=== PATIENT | male | born 1935 | race Caucasian/White ===

== ENCOUNTER 2022-08-31 17:15 | Inpatient (IN) | payer MEDICARE, BC ==
[~2022-08-31] VITALS: Ht 172.7 cm; Wt 69.9 kg
[2022-08-31] MEDS ORDERED: FLOMAX (17:38)
[2022-08-31] MEDS ORDERED: LOSARTAN (17:38)
[2022-08-31] MEDS ORDERED: GABAPENTIN (17:38)
[2022-08-31] MEDS ORDERED: LEVOTHYROXINE (17:38)
[2022-08-31 17:44] LABS: HEMATOCRIT 39.7 % (36.7-47.1); MEAN CORPUSCULAR HEMOGLOBIN 30.7 uug (23.8-33.4); MEAN CORPUSCULAR VOLUME 91.6 fL (73.0-96.2); PLATELET COUNT (AUTO) 257 K/uL (152-348)
[2022-08-31 17:51] LABS: CARBON DIOXIDE 23 mmol/L (21-32); CHLORIDE 106 mmol/L (98-107); CREATININE 1.5 mg/dL (0.6-1.3); GLUCOSE 95 mg/dL (74-106); POTASSIUM 3.7 mmol/L (3.5-5.1); UREA NITROGEN, BLOOD 24 mg/dL (7-18)
[2022-08-31 17:57] LABS: ACETAMINOPHEN 4.4 ug/mL (10-30); ALANINE AMINOTRANSFERASE 69 U/L (16-63); ALKALINE PHOSPHATASE 74 U/L (50-136); ASPARTATE AMINOTRANSFERASE 30 U/L (15-37); BILIRUBIN,DIRECT 0.2 mg/dL (0.0-0.2); BILIRUBIN,TOTAL 1.3 mg/dL (0.2-1.0); TOTAL PROTEIN, SERUM 6.9 g/dL (6.4-8.2)
[2022-08-31 18:21] LABS: ETHANOL < 3 MG/DL (0-0)
[2022-08-31 23:00] VITALS: BP 132/69
[2022-08-31] MEDS ORDERED: MAG HYDROX/AL HYDROX/SIMETH 30 ML LIQUID UDC PO PRN (23:15)
[2022-08-31] MEDS ORDERED: ACETAMINOPHEN 650 MG SUPP.RECT RC PRN (23:15)
[2022-08-31] MEDS ORDERED: MAGNESIUM HYDROXIDE 30 ML LIQUID UDC PO PRN (23:15)
[2022-08-31] MEDS ORDERED: ZOLPIDEM 5 MG TABLET PO PRN (23:15)
[2022-08-31 23:59] LABS: *BILIRUBIN,URIN NEGATIVE (NEGATIVE); *BLOOD, URINE NEGATIVE (NEGATIVE); *CLARITY,URINE CLEAR (CLEAR); *COLOR,URINE YELLOW (YELLOW); *KETONES,URINE NEGATIVE (NEGATIVE); *UROBILINOGEN,URINE 0.2 E.U./dl (NORMAL); LEUKOCYTE ESTERASE ,URINE NEGATIVE (NEGATIVE); NITRITE, URINE NEGATIVE (NEGATIVE); PH,URINE 5.5 (5.0-8.0); UGLUCOSE NEGATIVE (NEGATIVE)
[2022-09-01 00:03] LABS: *AMPHETAMINE, URINE NEGATIVE (NEGATIVE); *CANNABINOID, URINE NEGATIVE (NEGATIVE); *COCCAINE, URINE NEGATIVE (NEGATIVE); *PHENCYCLIDINE SCREEN,URINE NEGATIVE (NEGATIVE)
[2022-09-01] MEDS: LORAZEPAM 0.5 MG TABLET PO PRN ×2 (04:49→14:30)
[2022-09-01] MEDS: ACETAMINOPHEN 325 MG TABLET PO PRN ×2 (04:51→14:30)
[2022-09-01 07:44] VITALS: BP 138/66
[2022-09-01 07:52] LABS: ALANINE AMINOTRANSFERASE 68 U/L (16-63); ALKALINE PHOSPHATASE 78 U/L (50-136); ASPARTATE AMINOTRANSFERASE 35 U/L (15-37); BILIRUBIN,TOTAL 1.3 mg/dL (0.2-1.0); CARBON DIOXIDE 24 mmol/L (21-32); CHLORIDE 105 mmol/L (98-107); CREATININE 1.4 mg/dL (0.6-1.3); GLUCOSE 106 mg/dL (74-106); POTASSIUM 3.8 mmol/L (3.5-5.1); TOTAL PROTEIN, SERUM 7.1 g/dL (6.4-8.2); UREA NITROGEN, BLOOD 22 mg/dL (7-18)
[2022-09-01] MEDS ORDERED: TAMS-3 PO (13:45)
[2022-09-01] MEDS ORDERED: GABA300S PO (13:47)
[2022-09-01] MEDS ORDERED: LOSA25TA27 PO (14:14)
[2022-09-01] MEDS ORDERED: ASPI81TA31 PO (14:14)
[2022-09-01] MEDS ORDERED: GABA300C PO (14:14)
[2022-09-01] MEDS ORDERED: LEVO25TA9 PO (14:14)
[2022-09-01] MEDS ORDERED: FAMO40TA7 PO (14:16)
[2022-09-01] MEDS ORDERED: FINA5TAB3 PO (14:16)
[2022-09-01] MEDS ORDERED: MIRT7.5T10 PO (14:22)
[2022-09-01] MEDS ORDERED: ROSU20TA2 PO (14:26)
[2022-09-01] MEDS ORDERED: MEMA10TA PO (14:26)
[2022-09-01] MEDS ORDERED: QUET200T PO (14:26)
[2022-09-01] MEDS ORDERED: SENN8.6T19 PO (14:26)
[2022-09-01] MEDS ORDERED: LOSARTAN POTASSIUM 25 MG TABLET PO SCH (14:30)
[2022-09-01 15:20] VITALS: BP 135/78
[2022-09-01] MEDS ORDERED: GABAPENTIN 100 MG CAPSULE PO SCH (17:00)
[2022-09-01] MEDS: MEMANTINE HCL 5 MG TABLET PO SCH (18:19)
[2022-09-01] MEDS: HYDROCODONE/APAP 5-325MG TABLET PO PRN (18:19)
[2022-09-01 19:50] VITALS: BP 126/60
[2022-09-01] MEDS: SENNOSIDES 1 TABLET PO SCH (20:45)
[2022-09-01] MEDS: TAMSULOSIN HCL 0.4 MG CAP.SR.24H PO SCH (20:45)
[2022-09-01] MEDS: ATORVASTATIN 40 MG TABLET PO SCH (20:45)
[2022-09-01] MEDS: GABAPENTIN 300 MG CAPSULE PO SCH (20:45)
[2022-09-01] MEDS: QUETIAPINE FUMARATE 25 MG TABLET PO SCH (20:45)
[2022-09-02] MEDS: HYDROCODONE/APAP 5-325MG TABLET PO PRN ×2 (03:33→13:14)
[2022-09-02] MEDS: LEVOTHYROXINE SODIUM 25 MCG TABLET PO SCH (06:32)
[2022-09-02 08:10] VITALS: BP 115/76
[2022-09-02] MEDS: FINASTERIDE 5 MG TABLET PO SCH (08:50)
[2022-09-02] MEDS: ASPIRIN 81 MG TAB.CHEW PO SCH (08:50)
[2022-09-02] MEDS: MEMANTINE HCL 5 MG TABLET PO SCH ×2 (08:50→16:54)
[2022-09-02] MEDS: GABAPENTIN 300 MG CAPSULE PO SCH ×2 (08:50→20:01)
[2022-09-02] MEDS ORDERED: MEMANTINE HCL 10 MG TABLET PO SCH (09:00)
[2022-09-02] MEDS: ACETAMINOPHEN 325 MG TABLET PO PRN (10:25)
[2022-09-02 16:03] VITALS: BP 108/66
[2022-09-02 19:17] LABS: THYROID STIMULATING HORMONE 4.475 mIU/mL (0.358-3.740)
[2022-09-02 19:48] VITALS: BP 111/71
[2022-09-02] MEDS: QUETIAPINE FUMARATE 25 MG TABLET PO SCH (20:01)
[2022-09-02] MEDS: TAMSULOSIN HCL 0.4 MG CAP.SR.24H PO SCH (20:01)
[2022-09-02] MEDS: SENNOSIDES 1 TABLET PO SCH (20:02)
[2022-09-02] MEDS: ATORVASTATIN 40 MG TABLET PO SCH (20:02)
[2022-09-03] MEDS: LEVOTHYROXINE SODIUM 25 MCG TABLET PO SCH (06:23)
[2022-09-03] MEDS: ACETAMINOPHEN 325 MG TABLET PO PRN (06:28)
[2022-09-03 07:51] VITALS: BP 105/57
[2022-09-03] MEDS: ASPIRIN 81 MG TAB.CHEW PO SCH (08:29)
[2022-09-03] MEDS: GABAPENTIN 300 MG CAPSULE PO SCH ×2 (08:29→20:17)
[2022-09-03] MEDS: FINASTERIDE 5 MG TABLET PO SCH (08:29)
[2022-09-03] MEDS: MEMANTINE HCL 5 MG TABLET PO SCH ×2 (08:29→16:29)
[2022-09-03] MEDS: HYDROCODONE/APAP 5-325MG TABLET PO PRN (14:22)
[2022-09-03 15:13] VITALS: BP 128/71
[2022-09-03 20:07] VITALS: BP 116/66
[2022-09-03] MEDS: ATORVASTATIN 40 MG TABLET PO SCH (20:17)
[2022-09-03] MEDS: SENNOSIDES 1 TABLET PO SCH (20:17)
[2022-09-03] MEDS: QUETIAPINE FUMARATE 25 MG TABLET PO SCH (20:17)
[2022-09-03] MEDS: TAMSULOSIN HCL 0.4 MG CAP.SR.24H PO SCH (20:17)
[2022-09-04] MEDS: LEVOTHYROXINE SODIUM 25 MCG TABLET PO SCH (06:06)
[2022-09-04 07:30] VITALS: BP 125/73
[2022-09-04] MEDS: GABAPENTIN 300 MG CAPSULE PO SCH ×2 (08:56→20:50)
[2022-09-04] MEDS: FINASTERIDE 5 MG TABLET PO SCH (08:56)
[2022-09-04] MEDS: MEMANTINE HCL 5 MG TABLET PO SCH ×2 (08:56→17:05)
[2022-09-04] MEDS: ASPIRIN 81 MG TAB.CHEW PO SCH (08:57)
[2022-09-04 15:58] VITALS: BP 107/73
[2022-09-04] MEDS: ACETAMINOPHEN 325 MG TABLET PO PRN (17:33)
[2022-09-04 20:19] VITALS: BP 116/61
[2022-09-04] MEDS: SENNOSIDES 1 TABLET PO SCH (20:50)
[2022-09-04] MEDS: ATORVASTATIN 40 MG TABLET PO SCH (20:50)
[2022-09-04] MEDS: QUETIAPINE FUMARATE 25 MG TABLET PO SCH (20:50)
[2022-09-04] MEDS: TAMSULOSIN HCL 0.4 MG CAP.SR.24H PO SCH (20:50)
[2022-09-05] MEDS: ACETAMINOPHEN 325 MG TABLET PO PRN ×2 (06:10→14:17)
[2022-09-05] MEDS: LEVOTHYROXINE SODIUM 25 MCG TABLET PO SCH (06:10)
[2022-09-05 06:51] LABS: HEMATOCRIT 38.9 % (36.7-47.1); MEAN CORPUSCULAR HEMOGLOBIN 31.5 uug (23.8-33.4); MEAN CORPUSCULAR VOLUME 91.1 fL (73.0-96.2); PLATELET COUNT (AUTO) 257 K/uL (152-348)
[2022-09-05 07:36] LABS: BILIRUBIN,TOTAL 1.2 mg/dL (0.2-1.0); CREATININE 1.2 mg/dL (0.6-1.3); MAGNESIUM 2.2 mg/dL (1.8-2.4); PHOSPHOROUS 3.3 mg/dL (2.5-4.9); POTASSIUM 4.3 mmol/L (3.5-5.1); TOTAL PROTEIN, SERUM 7.1 g/dL (6.4-8.2)
[2022-09-05 07:39] VITALS: BP 113/67
[2022-09-05] MEDS: GABAPENTIN 300 MG CAPSULE PO SCH ×2 (09:08→20:33)
[2022-09-05] MEDS: ASPIRIN 81 MG TAB.CHEW PO SCH (09:08)
[2022-09-05] MEDS: FINASTERIDE 5 MG TABLET PO SCH (09:08)
[2022-09-05] MEDS: MEMANTINE HCL 5 MG TABLET PO SCH ×2 (09:08→17:07)
[2022-09-05 16:07] VITALS: BP 126/63
[2022-09-05 20:01] VITALS: BP 145/80
[2022-09-05] MEDS: SENNOSIDES 1 TABLET PO SCH (20:32)
[2022-09-05] MEDS: TAMSULOSIN HCL 0.4 MG CAP.SR.24H PO SCH (20:33)
[2022-09-05] MEDS: QUETIAPINE FUMARATE 25 MG TABLET PO SCH (20:33)
[2022-09-05] MEDS: ATORVASTATIN 40 MG TABLET PO SCH (20:33)
[2022-09-06] MEDS: LEVOTHYROXINE SODIUM 25 MCG TABLET PO SCH (06:26)
[2022-09-06 07:40] VITALS: BP 120/68
[2022-09-06] MEDS: ASPIRIN 81 MG TAB.CHEW PO SCH (09:13)
[2022-09-06] MEDS: FINASTERIDE 5 MG TABLET PO SCH (09:13)
[2022-09-06] MEDS: MEMANTINE HCL 5 MG TABLET PO SCH ×2 (09:13→17:02)
[2022-09-06] MEDS: GABAPENTIN 300 MG CAPSULE PO SCH ×2 (09:13→20:18)
[2022-09-06] MEDS: ACETAMINOPHEN 325 MG TABLET PO PRN ×2 (15:23→20:50)
[2022-09-06 16:38] VITALS: BP 126/64
[2022-09-06 20:00] VITALS: BP 116/67
[2022-09-06] MEDS: QUETIAPINE FUMARATE 25 MG TABLET PO SCH (20:17)
[2022-09-06] MEDS: TAMSULOSIN HCL 0.4 MG CAP.SR.24H PO SCH (20:17)
[2022-09-06] MEDS: SENNOSIDES 1 TABLET PO SCH (20:17)
[2022-09-06] MEDS: ATORVASTATIN 40 MG TABLET PO SCH (20:17)
[2022-09-07] MEDS: LEVOTHYROXINE SODIUM 25 MCG TABLET PO SCH (06:57)
[2022-09-07 08:16] VITALS: BP 115/70
[2022-09-07] MEDS: ASPIRIN 81 MG TAB.CHEW PO SCH (08:44)
[2022-09-07] MEDS: MEMANTINE HCL 5 MG TABLET PO SCH ×2 (08:44→16:24)
[2022-09-07] MEDS: FINASTERIDE 5 MG TABLET PO SCH (08:44)
[2022-09-07] MEDS: GABAPENTIN 300 MG CAPSULE PO SCH ×2 (08:44→20:25)
[2022-09-07 16:50] VITALS: BP 110/73
[2022-09-07 19:47] VITALS: BP 109/57
[2022-09-07] MEDS: ATORVASTATIN 40 MG TABLET PO SCH (20:25)
[2022-09-07] MEDS: QUETIAPINE FUMARATE 25 MG TABLET PO SCH (20:25)
[2022-09-07] MEDS: TAMSULOSIN HCL 0.4 MG CAP.SR.24H PO SCH (20:25)
[2022-09-07] MEDS: SENNOSIDES 1 TABLET PO SCH (20:25)
[2022-09-07] MEDS: ACETAMINOPHEN 325 MG TABLET PO PRN (20:25)
[2022-09-08] MEDS: LEVOTHYROXINE SODIUM 25 MCG TABLET PO SCH (06:15)
[2022-09-08 07:53] VITALS: BP 114/72
[2022-09-08] MEDS: FINASTERIDE 5 MG TABLET PO SCH (08:36)
[2022-09-08] MEDS: GABAPENTIN 300 MG CAPSULE PO SCH ×2 (08:36→21:08)
[2022-09-08] MEDS: ASPIRIN 81 MG TAB.CHEW PO SCH (08:36)
[2022-09-08] MEDS: MEMANTINE HCL 5 MG TABLET PO SCH ×2 (08:36→16:22)
[2022-09-08] MEDS: ACETAMINOPHEN 325 MG TABLET PO PRN ×2 (11:01→17:20)
[2022-09-08 16:10] VITALS: BP 99/49
[2022-09-08 19:58] VITALS: BP 123/74
[2022-09-08] MEDS: TAMSULOSIN HCL 0.4 MG CAP.SR.24H PO SCH (21:07)
[2022-09-08] MEDS: SENNOSIDES 1 TABLET PO SCH (21:07)
[2022-09-08] MEDS: QUETIAPINE FUMARATE 25 MG TABLET PO SCH (21:08)
[2022-09-08] MEDS: ATORVASTATIN 10 MG TABLET PO SCH (21:08)
[2022-09-09] MEDS: LEVOTHYROXINE SODIUM 25 MCG TABLET PO SCH (06:49)
[2022-09-09 07:30] VITALS: BP 138/74
[2022-09-09] MEDS: FINASTERIDE 5 MG TABLET PO SCH (08:26)
[2022-09-09] MEDS: GABAPENTIN 300 MG CAPSULE PO SCH ×2 (08:26→20:29)
[2022-09-09] MEDS: ASPIRIN 81 MG TAB.CHEW PO SCH (08:26)
[2022-09-09] MEDS: MEMANTINE HCL 5 MG TABLET PO SCH ×2 (08:26→16:59)
[2022-09-09] MEDS: ACETAMINOPHEN 325 MG TABLET PO PRN ×2 (08:56→16:22)
[2022-09-09 15:28] VITALS: BP 100/59
[2022-09-09 20:00] VITALS: BP 118/67
[2022-09-09] MEDS: TAMSULOSIN HCL 0.4 MG CAP.SR.24H PO SCH (20:29)
[2022-09-09] MEDS: SENNOSIDES 1 TABLET PO SCH (20:29)
[2022-09-09] MEDS: QUETIAPINE FUMARATE 25 MG TABLET PO SCH (20:29)
[2022-09-09] MEDS: ATORVASTATIN 10 MG TABLET PO SCH (20:30)
[2022-09-10] MEDS: LEVOTHYROXINE SODIUM 25 MCG TABLET PO SCH (06:21)
[2022-09-10 07:55] VITALS: BP 129/70
[2022-09-10] MEDS: FINASTERIDE 5 MG TABLET PO SCH (08:14)
[2022-09-10] MEDS: GABAPENTIN 300 MG CAPSULE PO SCH (08:14)
[2022-09-10] MEDS: MEMANTINE HCL 5 MG TABLET PO SCH (08:14)
[2022-09-10] MEDS: ASPIRIN 81 MG TAB.CHEW PO SCH (08:14)
[2022-09-10] MEDS: ACETAMINOPHEN 325 MG TABLET PO PRN (09:21)
== END 2022-09-10 12:45 | disposition home or self-care (01) | DRG 885 ==
LOC: ER 17:44 → GPS 20:30
PROVIDERS: ADMIT Psychiatry & Neurology Psychiatry
DX: F29 Unspecified psychosis not due to a substance or known physiological condition (principal); N17.0 Acute kidney failure with tubular necrosis; R17 Unspecified jaundice; F03.918 Unspecified dementia, unspecified severity, with other behavioral disturbance; H91.90 Unspecified hearing loss, unspecified ear; E03.9 Hypothyroidism, unspecified; N40.0 Benign prostatic hyperplasia without lower urinary tract symptoms; G89.29 Other chronic pain; M16.11 Unilateral primary osteoarthritis, right hip; G62.9 Polyneuropathy, unspecified; E78.5 Hyperlipidemia, unspecified; Z79.890 Hormone replacement therapy; I10 Essential (primary) hypertension; F31.9 Bipolar disorder, unspecified
CPT/HCPCS: 36415; 70450; 71045; 73502; 83735; 84100; 84443; 85025; A4663; G0480

== ENCOUNTER 2023-01-13 14:39 | Inpatient (IN) | payer MEDICARE, BC ==
[~2023-01-13] VITALS: Ht 172.7 cm; Wt 68.1 kg
[~2023-01-13 14:39] MED LIST: ASPI81TA31 PO; FAMO40TA7 PO; FINA5TAB3 PO; GABA300C PO; LEVO25TA9 PO; LOSA25TA27 PO; MEMA10TA PO; MIRT7.5T10 PO; QUET200T PO; ROSU20TA2 PO; SENN8.6T19 PO; TAMS-3 PO
[2023-01-13] MEDS ORDERED: ACETAMINOPHEN ES 500 MG TABLET PO ONE (15:00)
[2023-01-13 15:27] LABS: ABG BASE EXCESS -4.2 mmol/L; ABG HCO3 18.8 mmol/L; ABG PCO2 28.9 mmHg (35.0-45.0); ABG PH 7.432 (7.350-7.450); ABG PO2 85.4 mmHg (75.0-100.0); ABG SITE RIGHT BRACHIAL; COHb 0.6 % (0.5-1.5); MetHb 0.2 % (0.0-1.5); O2Hb 95.7 % (94.0-97.0); VENT MODE Room Air
[2023-01-13 15:33] LABS: BASOPHILS % (AUTO) 0.9 % (0.0-2.0); EOSINOPHILS # (AUTO) 0.3 K/uL (0.0-0.7); EOSINOPHILS % (AUTO) 6.9 % (0.0-7.0); HEMATOCRIT 37.9 % (36.7-47.1); HEMOGLOBIN 12.6 g/dL (12.5-16.3); LYMPHOCYTES % (AUTO) 27.1 % (20.5-51.5); MEAN CORPUSCULAR HEMOGLOBIN 30.2 uug (23.8-33.4); MEAN CORPUSCULAR HGB CONC 33 g/dL (32.5-36.3); MEAN CORPUSCULAR VOLUME 90.8 fL (73.0-96.2); MONOCYTES # (AUTO) 0.6 K/uL (0.1-1.30); MONOCYTES % (AUTO) 16.7 % (0.0-11.0); NEUTROPHILS # (AUTO) 1.8 K/uL (1.8-8.9); NEUTROPHILS % (AUTO) 48.4 % (38.5-71.5); PLATELET COUNT (AUTO) 168 K/uL (152-348); RED BLOOD CELL COUNT(AUTO) 4.17 MIL/uL (4.06-5.63); RED CELL DISTRIBUTION WIDTH 13.2 % (12.1-16.2); WHITE BLOOD COUNT (AUTO) 3.8 K/uL (3.6-10.2)
[2023-01-13 15:35] LABS: DIFFERENTIAL COMMENT 1
[2023-01-13 16:02] LABS: CALCIUM 8.5 mg/dL (8.5-10.1); CARBON DIOXIDE 25 mmol/L (21-32); CHLORIDE 106 mmol/L (98-107); GLUCOSE 124 mg/dL (74-106); POTASSIUM 4.2 mmol/L (3.5-5.1); SODIUM SERUM 139 mmol/L (136-145)
[2023-01-13 16:03] LABS: CREATININE 1.5 mg/dL (0.6-1.3); UREA NITROGEN, BLOOD 24 mg/dL (7-18)
[2023-01-13 16:17] LABS: ALANINE AMINOTRANSFERASE 66 U/L (16-63); ALBUMIN 3.2 g/dL (3.4-5.0); ALKALINE PHOSPHATASE 111 U/L (50-136); ASPARTATE AMINOTRANSFERASE 53 U/L (15-37); BILIRUBIN,TOTAL 0.8 mg/dL (0.2-1.0); FERRITIN 235 ng/mL (26-388); LACTATE DEHYDROGENASE 139 U/L (85-227)
[2023-01-13 16:18] LABS: NT-PRO BNP 75 pg/mL (0-125); TOTAL PROTEIN, SERUM 6.9 g/dL (6.4-8.2)
[2023-01-13] MEDS ORDERED: AZITHROMYCIN IV 500 MG in IV DEXTROSE 5% 250 ML IV ONE (17:00)
[2023-01-13] MEDS ORDERED: CEFTRIAXONE 1 G in IV DEXTROSE 5% 50 ML IV ONE (17:00)
[2023-01-13 17:08] LABS: *BILIRUBIN,URIN NEGATIVE (NEGATIVE); *BLOOD, URINE NEGATIVE (NEGATIVE); *CLARITY,URINE CLEAR (CLEAR); *COLOR,URINE YELLOW (YELLOW); *KETONES,URINE NEGATIVE (NEGATIVE); *PROTEIN,URINE TRACE (NEGATIVE); *UROBILINOGEN,URINE 0.2 E.U./dl (NORMAL); LEUKOCYTE ESTERASE ,URINE NEGATIVE (NEGATIVE); NITRITE, URINE NEGATIVE (NEGATIVE); PH,URINE 5.5 (5.0-8.0); UGLUCOSE NEGATIVE (NEGATIVE)
[2023-01-13 17:36] LABS: NEUTROPHILS % (MANUAL) 55 % (42-75)
[2023-01-13 17:37] LABS: BAND % (MANUAL) 0 % (0-10); BASOPHILS % (MANUAL) 0 % (0-2); EOSINOPHILS % (MANUAL) 5 % (0-8); LYMPHOCYTES % (MANUAL) 30 % (20-40); MONOCYTES % (MANUAL) 10 % (2-10)
[2023-01-13 17:41] LABS: CREATINE KINASE, TOTAL 124 U/L (39-308)
[2023-01-13] MEDS ORDERED: AZITHROMYCIN 500MG/ D5W 250ML IVPB **ER PYXIS ONLY IV ONE (18:06)
[2023-01-13] MEDS ORDERED: ACETAMINOPHEN ES 500 MG TABLET ONE (18:06)
[2023-01-13] MEDS ORDERED: CEFTRIAXONE /D5W 50ML IVPB **ER PYXIS IV ONE (18:06)
[2023-01-13] MEDS ORDERED: MIRTAZAPINE 15 MG TABLET PO SCH (21:00)
[2023-01-13] MEDS: SENNOSIDES 1 TABLET PO SCH (23:10)
[2023-01-13] MEDS: QUETIAPINE FUMARATE 200 MG TABLET PO SCH (23:10)
[2023-01-13] MEDS: GABAPENTIN 300 MG CAPSULE PO SCH (23:10)
[2023-01-13] MEDS: ATORVASTATIN 40 MG TABLET PO SCH (23:10)
[2023-01-13 23:13] VITALS: BP 120/59; TEMP 97.6; O2SAT 96
[2023-01-14] MEDS ORDERED: MAGNESIUM HYDROXIDE 30 ML LIQUID UDC PO PRN (03:30)
[2023-01-14] MEDS ORDERED: ACETAMINOPHEN 325 MG TABLET PO PRN (03:30)
[2023-01-14] MEDS ORDERED: REMEDY ESSENTIAL ZINC PASTE 113 GM TP PRN (03:30)
[2023-01-14] MEDS ORDERED: ONDANSETRON 4 MG/2 ML VIAL IV PRN (03:30)
[2023-01-14] MEDS: IV LACTATED RINGERS SOLUTION 1,000 ML IV SCH ×2 (03:49→17:24)
[2023-01-14] MEDS: ENOXAPARIN SODIUM 40 MG/0.4 ML DISP.SYRIN SQ SCH ×2 (04:00→20:09)
[2023-01-14 04:25] VITALS: BP 124/61; TEMP 97.7; O2SAT 97
[2023-01-14] MEDS: LEVOTHYROXINE SODIUM 25 MCG TABLET PO SCH (06:14)
[2023-01-14 08:00] VITALS: BP 117/66; TEMP 98; O2SAT 96
[2023-01-14] MEDS ORDERED: ASPIRIN 81 MG TAB.CHEW PO SCH (09:00)
[2023-01-14] MEDS ORDERED: LOSARTAN POTASSIUM 25 MG TABLET PO SCH (09:00)
[2023-01-14] MEDS: MEMANTINE HCL 5 MG TABLET PO SCH ×2 (09:06→16:58)
[2023-01-14] MEDS: GABAPENTIN 300 MG CAPSULE PO SCH (09:06)
[2023-01-14] MEDS: FINASTERIDE 5 MG TABLET PO SCH (09:06)
[2023-01-14] MEDS: DEXAMETHASONE SOD PHOSPHATE 4 MG INJ IV SCH (09:06)
[2023-01-14 11:26] VITALS: BP 130/65; TEMP 97.7; O2SAT 97
[2023-01-14] MEDS ORDERED: ASPI-1101 PO (13:06)
[2023-01-14] MEDS ORDERED: FAMO20TA8 PO (13:09)
[2023-01-14] MEDS ORDERED: TRAZ-182 PO (13:24)
[2023-01-14] MEDS ORDERED: MIRT-73 PO (13:36)
[2023-01-14] MEDS ORDERED: MEMA14CA PO (13:40)
[2023-01-14] MEDS ORDERED: MIRT-121 PO (15:09)
[2023-01-14 16:00] VITALS: BP 102/55; TEMP 97.8; O2SAT 95
[2023-01-14] MEDS: CEFTRIAXONE 1 G in IV DEXTROSE 5% 50 ML IV SCH (17:24)
[2023-01-14] MEDS: MIRTAZAPINE 15 MG TABLET PO SCH (20:25)
[2023-01-14] MEDS: TRAZODONE 50 MG TABLET PO SCH (20:26)
[2023-01-14] MEDS: QUETIAPINE FUMARATE 200 MG TABLET PO SCH (20:26)
[2023-01-14] MEDS: ATORVASTATIN 40 MG TABLET PO SCH (20:26)
[2023-01-14] MEDS: SENNOSIDES 1 TABLET PO SCH (20:26)
[2023-01-14] MEDS: AZITHROMYCIN IV 500 MG in IV DEXTROSE 5% 250 ML IV SCH (20:26)
[2023-01-14] MEDS: TAMSULOSIN HCL 0.4 MG CAP.SR.24H PO SCH (20:26)
[2023-01-14 20:37] VITALS: BP 116/63; TEMP 97.8; O2SAT 94
[2023-01-14] MEDS ORDERED: CEFTRIAXONE 1 G in IV DEXTROSE 5% 50 ML IV SCH (21:00)
[2023-01-14] MEDS ORDERED: MIRTAZAPINE 15 MG TAB.RAPDIS PO SCH (21:00)
[2023-01-14 21:59] VITALS: O2SAT 95
[2023-01-15] VITALS (7 sets, daily range): BP systolic 109–164; BP diastolic 56–66; TEMP 97.6–98.6; O2SAT 95–96
[2023-01-15] MEDS: IV LACTATED RINGERS SOLUTION 1,000 ML IV SCH ×2 (05:04→17:20)
[2023-01-15] MEDS: LEVOTHYROXINE SODIUM 25 MCG TABLET PO SCH (06:14)
[2023-01-15 07:04] LABS: BASOPHILS % (AUTO) 0.2 % (0.0-2.0); EOSINOPHILS % (AUTO) 0.6 % (0.0-7.0); HEMOGLOBIN 11.7 g/dL (12.5-16.3); LYMPHOCYTES # (AUTO) 1.1 K/uL (0.8-4.8); LYMPHOCYTES % (AUTO) 22.9 % (20.5-51.5); MEAN CORPUSCULAR HEMOGLOBIN 30.5 uug (23.8-33.4); MEAN CORPUSCULAR HGB CONC 34 g/dL (32.5-36.3); MEAN CORPUSCULAR VOLUME 88.7 fL (73.0-96.2); MONOCYTES # (AUTO) 0.6 K/uL (0.1-1.30); NEUTROPHILS # (AUTO) 3.1 K/uL (1.8-8.9); NEUTROPHILS % (AUTO) 63.3 % (38.5-71.5); PLATELET COUNT (AUTO) 184 K/uL (152-348); RED BLOOD CELL COUNT(AUTO) 3.84 MIL/uL (4.06-5.63); RED CELL DISTRIBUTION WIDTH 12.5 % (12.1-16.2); WHITE BLOOD COUNT (AUTO) 4.9 K/uL (3.6-10.2)
[2023-01-15 07:21] LABS: DIFFERENTIAL COMMENT 1
[2023-01-15 07:33] LABS: ALANINE AMINOTRANSFERASE 71 U/L (16-63); ALBUMIN 2.9 g/dL (3.4-5.0); ALKALINE PHOSPHATASE 108 U/L (50-136); ASPARTATE AMINOTRANSFERASE 42 U/L (15-37); BILIRUBIN,TOTAL 0.5 mg/dL (0.2-1.0); CALCIUM 8.5 mg/dL (8.5-10.1); CARBON DIOXIDE 27 mmol/L (21-32); CHLORIDE 107 mmol/L (98-107); CHOLESTEROL 113 mg/dL (<200); CREATININE 1.2 mg/dL (0.6-1.3); GLUCOSE 107 mg/dL (74-106); HDL CHOLESTEROL 35 mg/dL (40-60); POTASSIUM 4.3 mmol/L (3.5-5.1); SODIUM SERUM 139 mmol/L (136-145); TOTAL PROTEIN, SERUM 6.2 g/dL (6.4-8.2); TRIGLYCERIDES 89 MG/DL (30-150); UREA NITROGEN, BLOOD 15 mg/dL (7-18)
[2023-01-15 08:38] LABS: CREATINE KINASE, TOTAL 55 U/L (39-308)
[2023-01-15] MEDS: DEXAMETHASONE SOD PHOSPHATE 4 MG INJ IV SCH (09:24)
[2023-01-15] MEDS: MEMANTINE HCL 5 MG TABLET PO SCH ×2 (09:24→17:19)
[2023-01-15] MEDS: FINASTERIDE 5 MG TABLET PO SCH (09:24)
[2023-01-15] MEDS: ASPIRIN EC 81 MG TABLET.DR PO SCH (09:24)
[2023-01-15] MEDS: CEFTRIAXONE 1 G in IV DEXTROSE 5% 50 ML IV SCH (17:20)
[2023-01-15] MEDS: AZITHROMYCIN IV 500 MG in IV DEXTROSE 5% 250 ML IV SCH (20:57)
[2023-01-15] MEDS: TRAZODONE 50 MG TABLET PO SCH (20:57)
[2023-01-15] MEDS: SENNOSIDES 1 TABLET PO SCH (20:58)
[2023-01-15] MEDS: MIRTAZAPINE 15 MG TABLET PO SCH (20:58)
[2023-01-15] MEDS: ATORVASTATIN 40 MG TABLET PO SCH (20:58)
[2023-01-15] MEDS: QUETIAPINE FUMARATE 200 MG TABLET PO SCH (20:58)
[2023-01-15] MEDS: TAMSULOSIN HCL 0.4 MG CAP.SR.24H PO SCH (20:58)
[2023-01-15] MEDS: ENOXAPARIN SODIUM 40 MG/0.4 ML DISP.SYRIN SQ SCH (21:00)
[2023-01-16 05:11] VITALS: BP 128/63; TEMP 98.4; O2SAT 95
[2023-01-16] MEDS: IV LACTATED RINGERS SOLUTION 1,000 ML IV SCH (06:14)
[2023-01-16] MEDS: LEVOTHYROXINE SODIUM 25 MCG TABLET PO SCH (06:14)
[2023-01-16 07:07] LABS: PTH, INTACT 18 pg/mL (15-65)
[2023-01-16 08:00] VITALS: BP 122/68; TEMP 98.2; O2SAT 95
[2023-01-16] MEDS: DEXAMETHASONE SOD PHOSPHATE 4 MG INJ IV SCH (09:56)
[2023-01-16] MEDS: ASPIRIN EC 81 MG TABLET.DR PO SCH (09:57)
[2023-01-16] MEDS: MEMANTINE HCL 5 MG TABLET PO SCH (09:57)
[2023-01-16] MEDS: FINASTERIDE 5 MG TABLET PO SCH (09:57)
[2023-01-16 10:06] LABS: A/G RATIO 0.9 (0.7-1.7); ALBUMIN 2.8 g/dL (2.9-4.4); ALPHA-1-GLOBULIN 0.3 g/dL (0.0-0.4); ALPHA-2-GLOBULIN 0.9 g/dL (0.4-1.0); GAMMA GLOBULIN 0.8 g/dL (0.4-1.8); M-SPIKE Not Observed g/dL (Not Observed)
[2023-01-16 11:00] VITALS: BP 120/58; TEMP 98.2; O2SAT 99
== END 2023-01-16 12:00 | DRG 177 ==
LOC: ER 14:39 → TELE3 22:26 → MEDSURG3 01-15 10:20
PROVIDERS: ADMIT Nurse Practitioner Acute Care; ATTEND Nurse Practitioner Acute Care
DX: U07.1 COVID-19 (principal); G93.41 Metabolic encephalopathy; J12.82 Pneumonia due to coronavirus disease 2019; N17.9 Acute kidney failure, unspecified; G89.29 Other chronic pain; M25.551 Pain in right hip; N40.0 Benign prostatic hyperplasia without lower urinary tract symptoms; Z79.82 Long term (current) use of aspirin; Z79.890 Hormone replacement therapy; Z79.899 Other long term (current) drug therapy; E03.9 Hypothyroidism, unspecified; E78.5 Hyperlipidemia, unspecified; E86.0 Dehydration; H91.93 Unspecified hearing loss, bilateral; R00.1 Bradycardia, unspecified; I10 Essential (primary) hypertension; F03.90 Unspecified dementia, unspecified severity, without behavioral disturbance, psychotic disturbance, mood disturbance, and anxiety; R74.01 Elevation of levels of liver transaminase levels; R62.7 Adult failure to thrive; D64.9 Anemia, unspecified
CPT/HCPCS: 36415; 36600; 70030-TC; 71045; 82803; 83605; 83615; 83735; 83970; 84100; 84155; 84165; 84443; 84484; 85025; 85730; 86140; 87040; 93005; A9150; G0378; J0456; J0696; J1100; J1650; J7050; J7120

== ENCOUNTER 2023-10-29 19:59 | Emergency (ER) | payer MEDICARE, OTHER ==
[~2023-10-29] VITALS: Ht 172.7 cm; Wt 74.9 kg
[~2023-10-29 19:59] MED LIST changes: +ASPI-1101 PO; -ASPI81TA31 PO; +FAMO20TA8 PO; -FAMO40TA7 PO; -GABA300C PO; -MEMA10TA PO; +MEMA14CA PO; +MIRT-121 PO; -MIRT7.5T10 PO; +TRAZ-182 PO
[2023-10-29] MEDS ORDERED: ONDANSETRON ODT 4 MG TAB.RAPDIS ONE (21:01)
[2023-10-29] MEDS ORDERED: OXYCODONE/APAP 5-325 MG TABLET ONE (21:01)
[2023-10-29] MEDS: OXYCODONE/APAP 5-325 MG TABLET PO ONE (21:04)
[2023-10-29] MEDS: ONDANSETRON ODT 4 MG TAB.RAPDIS SL ONE (21:04)
[2023-10-29] MEDS ORDERED: OXYC-128 PO (21:28)
[2023-10-30 00:18] VITALS: BP 105/79; TEMP 98.6; O2SAT 95
== END 2023-10-30 00:23 | disposition home or self-care (01) ==
LOC: ER 20:05
DX: G89.29 Other chronic pain (principal); M25.551 Pain in right hip; F03.90 Unspecified dementia, unspecified severity, without behavioral disturbance, psychotic disturbance, mood disturbance, and anxiety; I10 Essential (primary) hypertension; E78.5 Hyperlipidemia, unspecified; Z79.899 Other long term (current) drug therapy; Z79.82 Long term (current) use of aspirin
CPT/HCPCS: 73502; A4606; A4663; Q0162

== ENCOUNTER 2024-06-24 15:42 | Inpatient (IN) | payer MEDICARE, OTHER ==
[~2024-06-24] VITALS: Ht 175.3 cm; Wt 73.5 kg
[~2024-06-24 15:42] MED LIST changes: +OXYC-128 PO
[2024-06-24] MEDS ORDERED: SENN-261 (16:17)
[2024-06-24] MEDS ORDERED: FOLI1TAB94 (16:17)
[2024-06-24 19:44] LABS: BASOPHILS # (AUTO) 0.1 K/UL (0.0-0.2); BASOPHILS % (AUTO) 0.9 % (0.0-2.0); EOSINOPHILS # (AUTO) 0.3 K/uL (0.0-0.7); EOSINOPHILS % (AUTO) 3.8 % (0.0-7.0); HEMATOCRIT 42.2 % (36.7-47.1); HEMOGLOBIN 14.3 g/dL (12.5-16.3); LYMPHOCYTES # (AUTO) 1.7 K/uL (0.8-4.8); LYMPHOCYTES % (AUTO) 22.1 % (20.5-51.5); MEAN CORPUSCULAR HEMOGLOBIN 30.7 uug (23.8-33.4); MEAN CORPUSCULAR HGB CONC 34 g/dL (32.5-36.3); MEAN CORPUSCULAR VOLUME 90.4 fL (73.0-96.2); MONOCYTES # (AUTO) 0.6 K/uL (0.1-1.30); MONOCYTES % (AUTO) 8.5 % (0.0-11.0); NEUTROPHILS # (AUTO) 4.9 K/uL (1.8-8.9); NEUTROPHILS % (AUTO) 64.7 % (38.5-71.5); PLATELET COUNT (AUTO) 211 K/uL (152-348); RED BLOOD CELL COUNT(AUTO) 4.67 MIL/uL (4.06-5.63); RED CELL DISTRIBUTION WIDTH 13.2 % (12.1-16.2); WHITE BLOOD COUNT (AUTO) 7.6 K/uL (3.6-10.2)
[2024-06-24 19:50] LABS: DIFFERENTIAL COMMENT 1
[2024-06-24 19:55] LABS: CALCIUM 9.3 mg/dL (8.5-10.1); CARBON DIOXIDE 27 mmol/L (21-32); CHLORIDE 106 mmol/L (98-107); CREATININE 1.5 mg/dL (0.6-1.3); GLUCOSE 96 mg/dL (74-106); POTASSIUM 4.3 mmol/L (3.5-5.1); SODIUM SERUM 144 mmol/L (136-145); UREA NITROGEN, BLOOD 18 mg/dL (7-18)
[2024-06-24 20:06] LABS: ETHANOL < 3 MG/DL (0-10)
[2024-06-24 20:07] LABS: AMMONIA < 10 umol/L (11-32)
[2024-06-24 20:10] LABS: ALANINE AMINOTRANSFERASE 32 U/L (16-63); ALBUMIN 3.8 g/dL (3.4-5.0); ALKALINE PHOSPHATASE 87 U/L (50-136); ASPARTATE AMINOTRANSFERASE 19 U/L (15-37); NT-PRO BNP 43 pg/mL (0-125); TOTAL PROTEIN, SERUM 7.6 g/dL (6.4-8.2)
[2024-06-24 20:17] LABS: ACETAMINOPHEN < 2.0 ug/mL (10-30)
[2024-06-24] MEDS ORDERED: ONDANSETRON 4 MG/2 ML VIAL IV PRN (21:45)
[2024-06-24] MEDS ORDERED: IV NS 1000 ML 1,000 ML IV SCH (21:45)
[2024-06-24] MEDS ORDERED: MAGNESIUM HYDROXIDE 30 ML LIQUID UDC PO PRN (21:45)
[2024-06-24] MEDS ORDERED: MORPHINE SULFATE 2 MG/1 ML DISP.SYRIN IVP PRN (21:45)
[2024-06-24] MEDS ORDERED: hydrALAZINE HCL 20 MG/1 ML VIAL IV PRN (21:45)
[2024-06-24 23:30] VITALS: BP 160/84; TEMP 97.6; O2SAT 98
[2024-06-25 06:27] VITALS: BP 123/67; TEMP 98.3; O2SAT 97
[2024-06-25 07:25] LABS: BASOPHILS # (AUTO) 0.1 K/UL (0.0-0.2); EOSINOPHILS # (AUTO) 0.3 K/uL (0.0-0.7); EOSINOPHILS % (AUTO) 5.3 % (0.0-7.0); HEMATOCRIT 38.2 % (36.7-47.1); HEMOGLOBIN 13.2 g/dL (12.5-16.3); LYMPHOCYTES # (AUTO) 1.8 K/uL (0.8-4.8); LYMPHOCYTES % (AUTO) 30.5 % (20.5-51.5); MEAN CORPUSCULAR HGB CONC 35 g/dL (32.5-36.3); MEAN CORPUSCULAR VOLUME 89.9 fL (73.0-96.2); MONOCYTES # (AUTO) 0.8 K/uL (0.1-1.30); MONOCYTES % (AUTO) 13.8 % (0.0-11.0); NEUTROPHILS # (AUTO) 2.9 K/uL (1.8-8.9); NEUTROPHILS % (AUTO) 49.4 % (38.5-71.5); PLATELET COUNT (AUTO) 206 K/uL (152-348); RED BLOOD CELL COUNT(AUTO) 4.25 MIL/uL (4.06-5.63); RED CELL DISTRIBUTION WIDTH 13.1 % (12.1-16.2); WHITE BLOOD COUNT (AUTO) 5.8 K/uL (3.6-10.2)
[2024-06-25] MEDS: LEVOTHYROXINE SODIUM 25 MCG TABLET PO SCH (07:31)
[2024-06-25] MEDS: IV NS 1000 ML 1,000 ML IV SCH (07:32)
[2024-06-25 07:45] LABS: ALANINE AMINOTRANSFERASE 20 U/L (16-63); ALBUMIN 3.2 g/dL (3.4-5.0); ALKALINE PHOSPHATASE 76 U/L (50-136); ASPARTATE AMINOTRANSFERASE 7 U/L (15-37); CALCIUM 8.7 mg/dL (8.5-10.1); CARBON DIOXIDE 26 mmol/L (21-32); CHLORIDE 108 mmol/L (98-107); CREATININE 1.3 mg/dL (0.6-1.3); GLUCOSE 66 mg/dL (74-106); PHOSPHOROUS 3.5 mg/dL (2.5-4.9); POTASSIUM 4.3 mmol/L (3.5-5.1); SODIUM SERUM 142 mmol/L (136-145); TOTAL PROTEIN, SERUM 6.8 g/dL (6.4-8.2); UREA NITROGEN, BLOOD 18 mg/dL (7-18)
[2024-06-25 07:50] LABS: DIFFERENTIAL COMMENT 1
[2024-06-25] MEDS: MIRALAX 17 GM POWD.PACK PO SCH (08:51)
[2024-06-25] MEDS: FINASTERIDE 5 MG TABLET PO SCH (08:51)
[2024-06-25] MEDS: TAMSULOSIN HCL 0.4 MG CAP.SR.24H PO SCH (08:51)
[2024-06-25] MEDS: ASPIRIN EC 81 MG TABLET.DR PO SCH (08:51)
[2024-06-25] MEDS: DOCUSATE SODIUM 100 MG CAPSULE PO SCH (08:51)
[2024-06-25] MEDS: FOLIC ACID 1 MG TABLET PO SCH (08:51)
[2024-06-25] MEDS: HEPARIN SODIUM,PORCINE 5,000 UNITS/ML VIAL SQ SCH (08:52)
[2024-06-25 12:00] VITALS: BP 131/70; TEMP 98.8; O2SAT 95
[2024-06-25 13:11] LABS: *BILIRUBIN,URIN NEGATIVE (NEGATIVE); *BLOOD, URINE NEGATIVE (NEGATIVE); *CLARITY,URINE CLEAR (CLEAR); *COLOR,URINE YELLOW (YELLOW); *KETONES,URINE NEGATIVE (NEGATIVE); *PROTEIN,URINE NEGATIVE (NEGATIVE); *UROBILINOGEN,URINE 0.2 E.U./dl (NORMAL); LEUKOCYTE ESTERASE ,URINE NEGATIVE (NEGATIVE); NITRITE, URINE NEGATIVE (NEGATIVE); PH,URINE 5.5 (5.0-8.0); UGLUCOSE NEGATIVE (NEGATIVE)
[2024-06-25 13:20] LABS: *URINE TOTAL PROTEIN RANDOM 14.9 mg/dL (<150/24HR)
[2024-06-25] MEDS: ATORVASTATIN 40 MG TABLET PO SCH (20:25)
[2024-06-25] MEDS: QUETIAPINE FUMARATE 200 MG TABLET PO SCH (20:25)
[2024-06-25] MEDS: TRAZODONE 50 MG TABLET PO SCH (20:25)
[2024-06-25] MEDS: ACETAMINOPHEN 325 MG TABLET PO PRN (20:27)
[2024-06-26 11:43] VITALS: BP 140/78; TEMP 97.6; O2SAT 94
[2024-06-26 16:00] VITALS: BP 156/77; TEMP 97.9; O2SAT 96
[2024-06-26 19:50] VITALS: BP 158/82; TEMP 97.5; O2SAT 96
[2024-06-26 20:20] VITALS: BP 156/82; TEMP 97.5; O2SAT 96
[2024-06-27 04:29] VITALS: BP 131/75; TEMP 97.9; O2SAT 94
[2024-06-27 04:33] VITALS: BP 131/75; TEMP 97.9; O2SAT 94
[2024-06-27 07:07] LABS: BASOPHILS # (AUTO) 0.1 K/UL (0.0-0.2); EOSINOPHILS # (AUTO) 0.3 K/uL (0.0-0.7); EOSINOPHILS % (AUTO) 6.3 % (0.0-7.0); HEMATOCRIT 33.7 % (36.7-47.1); HEMOGLOBIN 11.9 g/dL (12.5-16.3); LYMPHOCYTES # (AUTO) 1.7 K/uL (0.8-4.8); MEAN CORPUSCULAR HEMOGLOBIN 31.6 uug (23.8-33.4); MEAN CORPUSCULAR HGB CONC 36 g/dL (32.5-36.3); MONOCYTES # (AUTO) 0.6 K/uL (0.1-1.30); MONOCYTES % (AUTO) 12.3 % (0.0-11.0); NEUTROPHILS # (AUTO) 2.3 K/uL (1.8-8.9); NEUTROPHILS % (AUTO) 46.4 % (38.5-71.5); PLATELET COUNT (AUTO) 183 K/uL (152-348); RED BLOOD CELL COUNT(AUTO) 3.79 MIL/uL (4.06-5.63); RED CELL DISTRIBUTION WIDTH 13.3 % (12.1-16.2)
[2024-06-27 07:26] LABS: DIFFERENTIAL COMMENT 1
[2024-06-27 07:51] LABS: ALANINE AMINOTRANSFERASE 22 U/L (16-63); ALBUMIN 2.8 g/dL (3.4-5.0); ALKALINE PHOSPHATASE 66 U/L (50-136); ASPARTATE AMINOTRANSFERASE 14 U/L (15-37); CALCIUM 7.9 mg/dL (8.5-10.1); CARBON DIOXIDE 25 mmol/L (21-32); CHLORIDE 111 mmol/L (98-107); CREATININE 1.3 mg/dL (0.6-1.3); GLUCOSE 81 mg/dL (74-106); PHOSPHOROUS 2.7 mg/dL (2.5-4.9); POTASSIUM 3.8 mmol/L (3.5-5.1); SODIUM SERUM 143 mmol/L (136-145); TOTAL PROTEIN, SERUM 5.7 g/dL (6.4-8.2); UREA NITROGEN, BLOOD 12 mg/dL (7-18)
[2024-06-27] MEDS ORDERED: MEMA14CA5 PO (10:54)
[2024-06-27 11:37] VITALS: BP 121/64; TEMP 97.8; O2SAT 94
[2024-06-27 15:49] VITALS: BP 127/67; TEMP 98; O2SAT 97
== END 2024-06-27 17:05 | DRG 641 ==
LOC: ER 15:42 → MEDSURG3 23:14
PROVIDERS: ADMIT Internal Medicine; ATTEND Internal Medicine
DX: R62.7 Adult failure to thrive (principal); N17.9 Acute kidney failure, unspecified; Z68.23 Body mass index [BMI] 23.0-23.9, adult; N40.0 Benign prostatic hyperplasia without lower urinary tract symptoms; G89.29 Other chronic pain; M25.551 Pain in right hip; E03.9 Hypothyroidism, unspecified; E78.5 Hyperlipidemia, unspecified; H91.93 Unspecified hearing loss, bilateral; Z79.890 Hormone replacement therapy; I12.9 Hypertensive chronic kidney disease with stage 1 through stage 4 chronic kidney disease, or unspecified chronic kidney disease; N18.30 Chronic kidney disease, stage 3 unspecified; F03.90 Unspecified dementia, unspecified severity, without behavioral disturbance, psychotic disturbance, mood disturbance, and anxiety; M89.8X9 Other specified disorders of bone, unspecified site; Z79.82 Long term (current) use of aspirin
CPT/HCPCS: 36415; 70450; 71045; 76775; 83735; 84100; 84300; 84484; 85025; G0378; G0480; J1644; J7040